=== PATIENT | male | born 2000 | race Caucasian/White ===

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

== ENCOUNTER 2019-03-04 07:26 | Emergency (ER) | payer OTHER ==
[~2019-03-04] VITALS: Ht 167.6 cm; Wt 70.0 kg
[~2019-03-04 07:26] MED LIST: ACET500C5 PO; ALBU18HF INHALATION; ALBU2.5V3 NEB; ALBU8.5H8 INH; ALBU90AE INHALATION; BEN25 PO; CETI10CA PO; FLUT12HF IH; GUAI-637 PO; GUAI5SYR2 PO; IBUP-1542 PO; ONDA4TAB8 PO; PRED20TA PO; RTPRO NEB; SODI44SP11 NASAL
[2019-03-04 07:29] VITALS: BP 108/55; PULSE 78; RESP 18; Ht 167.6 cm; Wt 70.0 kg
== END 2019-03-04 07:45 | disposition home or self-care (01) ==
LOC: FTE 07:26
DX: J45.901 Unspecified asthma with (acute) exacerbation (principal); F17.210 Nicotine dependence, cigarettes, uncomplicated
CPT/HCPCS: 99283